=== PATIENT | female | born 1960 | race African-American/Black ===

== ENCOUNTER 2018-12-13 22:02 | Emergency (ER) | payer OTHER ==
[~2018-12-13] VITALS: Ht 167.6 cm; Wt 87.5 kg
[2018-12-13 23:58] LABS: ABSOLUTE NEUTROPHILS 3.1 thou/uL (1.4-8.2); BASOPHILS 0.5 % (0.0-2.0); EOSINOPHILS 2.7 % (0.0-3.0); HEMATOCRIT 35.3 % (37.0-47.0); HEMOGLOBIN 11.9 gm/dL (12.0-15.0); LYMPHOCYTES 35.3 % (24.0-44.0); MCH 29.7 pg (26.0-34.0); MCHC 33.9 g/dL (28.0-37.0); MCV 87.5 fL (80.0-100.0); PLATELET COUNT 260 thou/uL (150-400); POLYS 51.5 % (36.0-66.0); RBC 4.03 mil/uL (4.20-5.00); RDW 14.4 % (10.5-14.5); WBC 6.1 thou/uL (4.0-11.0)
[2018-12-14 00:05] LABS: CALCIUM 9.2 mg/dL (8.5-10.1); CREATININE 1.3 mg/dL (0.6-1.0); POTASSIUM 3.7 mmol/L (3.5-5.1)
[2018-12-14] MEDS ORDERED: CLEOCIN HCL150 MG PO (01:56)
[2018-12-14] MEDS ORDERED: ULTRAM 50MG TAB50 MG PO (01:56)
[2018-12-14 02:28] VITALS: BP 150/100
== END 2018-12-14 02:29 | disposition home or self-care (01) ==
LOC: ER 22:02
PROVIDERS: Emergency Medicine
DX: L03.211 Cellulitis of face (principal); I10 Essential (primary) hypertension; Z88.8 Allergy status to other drugs, medicaments and biological substances

== ENCOUNTER 2019-03-11 14:12 | Emergency (ER) | payer OTHER ==
[~2019-03-11] VITALS: Ht 165.1 cm; Wt 87.5 kg
[~2019-03-11 14:12] MED LIST: CLEOCIN HCL150 MG PO; ULTRAM 50MG TAB50 MG PO
[2019-03-11 14:22] VITALS: BP 155/85
[2019-03-11] MEDS ORDERED: CLEOCIN HCL150 MG PO (14:53)
--- NOTE | 2019-03-12 08:21 | EKG ---
[place] [address] [facility] [employer] [place] [address] ELECTROCARDIOGRAM REPORT Name: THELMA KAUFMAN [id number] ������������������ Admission: 03/11/19 ������������������ Attend Phys: Discharge: 03/11/19 ������������������ Date of : 60 Report #: [id number] ����������������������������������������������������������������� [id number] THIS REPORT FOR: //name// [facility] ED Test Date: 2019-03-11 Test Time: 14:22:43 Pat Name: THELMA KAUFMAN Department: Room: Gender: F [employer]: DIPESH : 1960 Requested By: Linda Granger Order Number: [id number] MD: Roosevelt Nielsen Measurements Intervals [place] Rate: 79 P: 53 CT: 149 QRS: 10 QRSD: 98 T: 40 QT: 389 QTc: 447 Interpretive Statements Sinus rhythm Nonspecific ST and T wave abnormality No previous ECG available for comparison Electronically Signed On 03-12-2019 8:20:46 CDT by Roosevelt Nielsen [email or web address] ��������������������������������������������� <ELECTRONICALLY SIGNED> ���������������������������������������� By: Roosevelt Nielsen MD, [facility] ��������������������������������������������� 03/12/19 0820 1422 1422 Roosevelt Nielsen MD, FACC /EPI
== END 2019-03-11 15:10 | disposition home or self-care (01) ==
LOC: ER 14:12
DX: K04.7 Periapical abscess without sinus (principal); I10 Essential (primary) hypertension; Z88.8 Allergy status to other drugs, medicaments and biological substances

== ENCOUNTER 2019-05-01 09:26 | Emergency (ER) | payer OTHER ==
[~2019-05-01] VITALS: Ht 167.6 cm; Wt 83.9 kg
[2019-05-01] MEDS ORDERED: LISINOPRIL40 MG PO (09:31)
[2019-05-01] MEDS ORDERED: PENICILLIN VK500 M1 PO (10:33)
[2019-05-01 11:18] VITALS: BP 184/102
== END 2019-05-01 11:05 | disposition home or self-care (01) ==
LOC: ER 09:26
DX: K04.7 Periapical abscess without sinus (principal); I10 Essential (primary) hypertension; Z88.8 Allergy status to other drugs, medicaments and biological substances